=== PATIENT | female | born 1970 | race Caucasian/White ===

== ENCOUNTER 2024-01-19 08:12 | Outpatient (OUT) | payer OTHER, SELFPAY ==
[2024-01-19 10:58] LABS: Chol HDL Ratio 2.8; Cholesterol 155 mg/dL (<=200); Glucose 91 mg/dL (74-106); HDL Cholesterol 55 mg/dL (40-60); LDL Cholesterol Calculated 91.8 mg/dL; Triglycerides 41 mg/dL (<=150); VLDL CHOLESTEROL 8.2 mg/dL
== END 2024-01-19 08:13 | disposition home or self-care (01) ==
LOC: LAB 08:19
PROVIDERS: PCP Internal Medicine; Visit Provider Internal Medicine
DX: E78.2 Mixed hyperlipidemia (principal); Z13.1 Encounter for screening for diabetes mellitus
CPT/HCPCS: 36415; 80061; 82947

== ENCOUNTER 2024-12-20 08:37 | Outpatient (OUT) | payer OTHER, SELFPAY ==
--- OUTSIDE RECORDS SUMMARY | 2024-12-20 08:42 | XMS_ITS | CCD ---
Author Organization [facility] Care Team Providers Care Ui Developer Name Role Phone Linda Broussard Primary Care Physician Linda Biggs Unavailable Unavailable BRITTA CAVAZOS Primary Care Physician [phone] Britta Cavazos MD Primary Care Provider [phone] BRITTA CAVAZOS Referring Unavailable BRITTA CAVAZOS Primary Care Unavailable BRITTA CAVAZOS Referring Unavailable BRITTA CAVAZOS Primary Care Unavailable MACY, DR CALLEJAS Attending Unavailable MACY, DR CALLEJAS Consulting Unavailable MACY, DR CALLEJAS Primary Care Unavailable MACY, DR CALLEJAS Admitting Unavailable Linda Broussard Primary Care Physician NEL Benedict Admitting Unavailable NEL OLIVEIRA Attending Unavailable BRITTA CAVAZOS Primary Care Unavailable NEL OLIVEIRA Admitting Unavailable NEL OLIVEIRA Attending Unavailable BRITTA CAVAZOS Primary Care Unavailable Allergies Allergy Classification Reported Allergen(s) Allergy Type Date of Onset Reaction(s) Facility (1 source) Adhesive bandage Drug allergy Eruption (morphologic abnormality) [facility] (1 source) Pollen Drug allergy Allergic rhinitis due to pollen (disorder) [facility] Medications Current Medications Medication Drug Class(es) Dates Sig (Normalized) Sig (Original) acetaminophen 500 mg oral tablet (1 source) Start: 10-15-2020 take 2 tablets by mouth every four hours as needed for pain acetaminophen 500 mg Tab 1,000 mg = 2 tab(s), Oral, q4hr, PRN for pain Start Date: 10/15/20 Status: Ordered FLUoxetine 40 mg oral capsule (5 sources) Serotonin Reuptake Inhibitor Start: 08-17-2019 take 1 capsule by mouth once daily FLUoxetine 40 mg Cap 40 mg = 1 cap(s), Oral, Daily, Refills(s) 0, Anxiety Start Date: 10/08/20 Status: Ordered fluticasone propionate 0.05 mg/actuat metered dose nasal spray (1 source) Corticosteroid Start: 10-08-2020 Flonase 0.05 mg/inh nasal spray 2 spray(s), Nasal, Daily Allergy symptoms, Refill(s) 0, Allergy symptoms Start Date: 10/08/20 Status: Ordered Xyzal (1 source) Histamine-1 Receptor Antagonist Start: 02-15-2010 Xyzal 5 mg, Oral, qPM Allergy symptoms, Refill(s) 0, Allergy symptoms Start Date: 02/15/10 Status: Ordered lisinopril 10 mg oral tablet (3 sources) Angiotensin Converting Enzyme Inhibitor Start: 10-08-2020 End: 01-15-2023 take 1 tablet by mouth once daily lisinopril 10 mg Tab 10 mg = 1 tab(s), Oral, Daily, Refills(s) 0, High blood pressure Start Date: 10/08/20 Status: Ordered SUMAtriptan 100 mg oral tablet (3 sources) Serotonin-1b and Serotonin-1d Receptor Agonist Start: 10-08-2020 take 1 tablet by mouth once daily as needed for headache SUMAtriptan 100 mg Tab 100 mg = 1 tab(s), Oral, Daily, PRN as needed for migraine headache, Refills(s) 0, Migraine headache Start Date: 10/08/20 Status: Ordered Completed/Discontinued Medications Medication Drug Class(es) Dates Sig (Normalized) Sig (Original) ibuprofen 200 mg oral tablet (2 sources) Nonsteroidal Anti-inflammatory Drug take 2 tablets by mouth every six hours as needed ibuprofen 200 mg tablet take 2 tablets (400 mg) by oral route every 6 hours as needed with food Problems Active Problems Problem Classification Problem Date Documented Date Episodic/Chronic Anxiety disorders (1 source) Anxiety 10-08-2020 Chronic Benign neoplasm of uterus (1 source) Uterine leiomyoma 10-08-2020 Episodic Essential hypertension (5 sources) Essential (primary) hypertension; Translations: [Hypertensive disorder] Onset: 6 10-08-2020 Chronic Headache; including migraine (5 sources) Migraine with aura, not intractable, without status migrainosus; Translations: [Transformed migraine] Onset: 6 10-08-2020 Chronic Nonmalignant breast conditions (1 source) Microcalcifications of the breast 09-15-2020 Episodic Other connective tissue disease (3 sources) Pain in right arm Onset: 2 Episodic Other connective tissue disease (3 sources) Pain in left arm Onset: 2 Episodic Other female genital disorders (1 source) Enlarged uterus 10-08-2020 Episodic Other nervous system disorders (2 sources) Carpal tunnel syndrome, left upper limb; Translations: [Carpal tunnel syndrome, left upper limb] Onset: 3 Chronic Other nervous system disorders (3 sources) Other disturbances of skin sensation Onset: 2 Episodic Other non-traumatic joint disorders (1 source) Pain of right wrist; Translations: [Pain in right wrist] Episodic Other non-traumatic joint disorders (3 sources) Pain in right wrist; Translations: [Pain in right wrist] Onset: 3 Episodic Other upper respiratory disease (2 sources) Allergic rhinitis due to pollen Chronic Residual codes; unclassified (1 source) Family history of cancer of colon 09-15-2020 Episodic Residual codes; unclassified (1 source) Other specified postprocedural states; Translations: [Other specified postprocedural states] Onset: 3 Episodic Past or Other Problems Problem Classification Problem Date Documented Da te Episodic/Chronic Viral infection (2 sources) COVID-19 Results Test Name Value Interpretation Reference Range Facil ity GLUCOSE BLOODon 12-23-2022 Glucose [Mass/Vol] 99 mg/dL Normal 74-106 [facility] Comment on above: Performed By: #### G ARIA #### [facility] [address] [address] [address] Amanda Joseph XR WRIST RIGHT (MIN 3 VIEWS) on 12-07-2022 XR WRIST RIGHT (MIN 3 VIEWS) EXAMINATION: XRAY VIEWS OF THE RIGHT WRIST 12/07/2022 8:47 am COMPARISON: None. HISTORY: ORDERING SYSTEM PROVIDED HISTORY: Right wrist pain FINDINGS: Carpal bones and alignment are maintained. Distal radius and ulna are intact. No acute fracture or dislocation. IMPRESSION: Normal wrist radiographs Interpreted by: Hang Stone DO Signed by: Hang Stone DO 12/07/22 Final result Normal [facility] Normal wrist radiographs [facility] RIS CONSOLID[facility] EXAMINATION: XRAY VIEWS OF THE RIGHT WRIST 12/07/2022 8:47 am COMPARISON: None. HISTORY: ORDERING SYSTEM PROVIDED HISTORY: Right wrist pain FINDINGS: Carpal bones and alignment are maintained. Distal radius and ulna are intact. No acute fracture or dislocation. [facility] Hang Stone DO - 12/07/2022 EXAMINATION: XRAY VIEWS OF THE RIGHT WRIST 12/07/2022 8:47 am COMPARISON: None. HISTORY: ORDERING SYSTEM PROVIDED HISTORY: Right wrist pain FINDINGS: Carpal bones and alignment are maintained. Distal radius and ulna are intact. No acute fracture or dislocation. IMPRESSION: Normal wrist radiographs [employer] Phone: Radiology Study observation (narrative) [employer] Phone: XR WRIST RIGHT (MIN 3 VIEWS) Ordered By: Hang Stone on 12-07-2022 [facility] [employer] Phone: Coding Summary.on 03-15-2022 Coding Summary. [id number]+PGhlYWQ+FM4EQKQ [id number] ERJOXSNJCO3RGC7ymQX1T ZggL2DxbkAf DzowbBSaHO35TJk5XAF4x DgpMGienJ1wlNHaQ1b4Au NwSB60zU84GRgbUMTrHlF 3LjZpbjsgbWFy S5srMzQohCSbWhy+PHRhY mxlIHdpZHRoPScxMDAlJy YgvSvgII6fHp1qAGHnJMV vbGxhcHNlOiBj o1usOZNvDTbiKN7wnKvpK 3TwyHX9QZYib9o3Gk95kS I+BCDlEUI2vJrdDZrkr35 4XpEpg1zyEUZ2 fAZyLSkdFCN6B86jb0V5H IJbBCUhBVJ8mYA6zL0ugG egjyhtP4PwaRFdSzL6QNC 5lXIcmV1opBcu qrsxaA0iOrf+Y63XRG5FF TDAZH5QQku6Z9IlFindbQ I+QP89FRXqPY25rFFstYA zu8ifsZr9CnSd TMNvOLQ3aBflTPzpn4EiT JFsN47gkJUac9B0SDTqcJ uqhWWqPdColBU6uF4wGLd pqhftl4xotvai Sumxx2pzvi98uI86Q66dJ VmhYTCbKJK5QRJyKRSvjA lljl7qkK7cPv9+TWgms6o hq7oguYp5AyVv TWPqtuVdrKbpAXX6b8IwH i76R7YszCrvc7YvFbt8hw 76kZQzx6O1lLQ1LDdoPXO pvV0cZInzJlB8 GNUbKuBndB65qMUnZApzG i6loVuftJmzWP5wOKTykb ajDQLnpC7cZDXvzERsrIv dBA9eBQAirjmp g465NzZcCYQ6KRFhqHByD 9HlgU4dUiIbTZSwZTBuL8 XbtFSrKQahB385LJuoPqP 1EZXkheWhW5Xk DMTonNisAtD6p6J1Qq5Wk 4IbhjmkZJO8BKxlGAR8Im ElFwOjXlS3B0WgUzu1OUV woBtkSL4zU8Tc ZBJkaiqbdzuqcJX1QVAmI LKgeD48uFOjXJinPz7cr1 G0c694FQImCQIfuO82Ux8 udDogMTBwdCBU nA5ytryhk9paxfqxRcSvZ PXdCIl9WNa9NLDsvAyrFy HmXHT3PtF6MFZ2pUWtjZ0 fuQxiexatyD8t Oyc+H82alW5gJXM6JSN5v picZDLxzqGwJH26ZO66O9 RyPjwvdGFibGU+PGRpdiB onAqnKT2aGrLu d2jtv0JcSAqvP5BkFUOjA AnbUxw5BCXmCWN3wCM3mG 2bFYAjXRexh3T3fDH1D0B usoNnlm5dm3ga NYDrBZlaQ26ovHFgi5N8V GEsrES1KJPgnXwaPcLeaV 93Oyc+ALJxpRcee9NtSjm sg6mgx7tvcZn5 FrZkKRQmuwIeuHroWEP7r 9UmXw99N90cVPvjCTWnKG GxLTIjWPCdrAoyum2zyM3 wIi8+PGNvbCB3 dMC3uE2dPATmBbD3SOluR 021YnRigWWlQvjyx6bpw8 eooWh1RzHoHNZwemIejFk gKXZ5t3DtSq71 Y38gAAnfNUXwENAcHDBkC DSbsFwiel4ojB6wCt2+PC 8zj3geke22qO27wZK+PHR sVRO3gDvoCRut QLIbuF1hGHakCgL0ZRGlQ pRfcW72hAQlPGlmDg3fkW akxAucCZ9tNTCfauixz95 9TuGsb9ooPRAw nEVrVQazIQV4C84ji7E5J WJgGVJqAAV8tQJ9fJ6utC lnbjogbGVmdDsgdmVydGl uGEtjHJvuC636 IHRvcDsnPlBhdGllbnQgT hMlHEe1X0WtEum6IGXlfJ geKD0qcPFkXGilPo8rkOs hiZjoFW2pSRKe ihvoe119EkVog6rvCHFqo ONqAVjqAFK6K75bq8F8BS EfNFNvWAR9cZF5qP9ttNk nbjogbGVmdDsg ebIazKibFZprKOhmG937N HRvcDsnPkJpcnRoIERhdG O4CO05QI22hAEbg7F2iJB 2N5BfKFKjgheg uqhxlVC6IHIyKLAerO48M a4hhAxlRc2nTODwXCP3SK VimCQbQ7HfqJ6jJtFjMOB jNODlY3IoaCDp QYkgU529UTohCrM0ESEpp vKcR3EvBXAtoCdzWmO9o5 P8Ny8ZK3W0YZ60KT32iOV fc7K0iZY8I1Op IRWgsfimzdrkyRE0MURdI TEyeJ96Ly6ngLjdDl6bBF ZyHIE6APGwgYIcK2QhaA7 yOiAjMDAwMDAw K6BmyWRtEYiaH264TJwtF sT7MPHvpvQeF9UaMWUudU klKhF6q3J8Yr7MEMo0YQ0 6WF67xEVro1Q6 jPX2D1ImEPHcfhbzvfawo US8CMSiKGZhqI02Hr5dcG zfMg9yFRHxVNN9NGNjsCI gT1PcjY4hWhDf DSRuAFFkZ3XssFKrXHanO 949FXvcHuL8KQEldgJbO2 EmFMUqfPhbQuY7z2I5Tr9 UCFFhCF90CMT8 zZH8CY81FQ51Q9AiFdqac GFibGU+PHRhYmxlIHdpZH RoPScxMDAlJyBzdHlsZT0 kAc7nZRLuAWAv bPeinXBcPaXir9ewFZAwC MmpQL2tfRvyC9RxiLF7LI Jgm5r9Kn57V16jQ3VtwCZ +YPFflQV3wVW1 rJ1zCjGyFlH8AYitF047P wPwpNKzCvpnq9uol3sbhZ x7ZiM0OMKndiIokIomXGS 3m9DiKi53G84y IHdpZHRoPSIxNSUiIHZhb Onbxw8otV4yAm0+PGNvbC J3fYE2kU1dVrJlUrV6MSr xY993ApXqfOLc Pvjgl8pue7arsIt9GjWiY JSnuyNcxUpuDWP3d9NaTt 47I3MxmChxr0AzEgq5vc0 9pDCqa9W1aGF9 J0JqZJJcpypxgVRhtBmgC V4fOSCixbkzYADjjI9lCW AxZ1i9KhOcArV2IUgnJ0O tjlJ6CXNpxSFv RZfcJRZ8T06la9E5ZGMmO KHaVUU7aLW5gA0geBxeqb ogbGVmdDsgdmVydGljYWw cRBgcI790AJPd dIznVIKmwF0tCAEizLXzg YefPF3bGIGegqaiRuMTJ6 VSTUFOLCBDSEVSWUwgTTw vdGQ+PHRkIHN0 uOxxDGxfHBWedH2uWNBeV 1o0RmGiTmS0CBeiQ1IxDJ UpdyfpXv34oH8xQnYgJsO 4WDjnR8YdxcR6 NPNqfCGhKJuaKWT9D77zs 1E5PTHjIKLrUTG8aXN7jS 1hbGlnbjogbGVmdDsgdmV ydGljYWwtYWxp F086BWQcqPnaIhR0UsBlC pT8VwM8S4EmDbb5JGYnoC geYG0bzNDmNTopBw6dvZf mdJkgHJ1rBVVt pzfySRWohT1oDSAmvOGxn BfmWR7aSDYuffqqq488Ey KxCYJ6LBTcxXCwC7CkwS2 yOiAjMDAwMDAw U6VemMFeCJutU637BPsoM kU5DPExycHdQ5RiHCYokL qjGdF1s0I3Mz05VNUUYDJ yczwvdGQ+PHRk EON3gXmyELjzWQCzpF0cL MNnX9x5FrJkCzD2JMclT9 OfOIRezhdkQs45xV0iFdC gGxY1NBwaF8Mj bjL6WBWgkPJwDIluYIO9T 73rw9M2IYLlTLSeLEI2iL R3dY1euLadsadfaJWtgNf gdmVydGljYWwt YFhqK812XPFfnJqcFxFlg WFsZTwvdGQ+ZCQyTZC1uE juQUoxSDJbrI6mUFFwF1p 3NxBySrM4YDsu Z7DwJTJsznziXe41rR8hQ xOuZhQ2TAvdL8AhoiB1HJ PugQQeCAhlISA7O53zh9C 9CITnYTFcDJF6 kXV5nA4wsQhnimamxOKux DsgdmVydGljYWwtYWxpZ2 43GFMhwPwhPr39bBGgbCi drbP5T7QcYobd dHI+FW52AREeFS49aDAli WMjx5uudPu6EqSkJNQkEN N4mSybSArnv6JvTLHmJ16 fxRFda4P3DTFs fDpmpGWwFpPviWP1yG1vF Zbkoccuc0rltuhvSvvrv7 xsko32dY35R30hVMqnZLL oPSIzMCUiIHZh rIflxl2fuO5jHg8+PGNvb WA0kHM3sJ1sXaMcVbM3YT hnC998NvRghGGeYdfex5l xs0okmGc6KwBd KDFtmoMznOuoWQM3t3VwA l77P66zIFazBGEiJUHvCY VoJLUxjAwnsn8uhR5hYq2 +CO1se5ffrs16 iG09rWF+IUQlSLD7gXqwN JglTRUgkK4gQYocRqG0NL LyMuVhnH22xXQoKGylZm6 jjZuwoUazKO2j AFEugrunq306DcKuq4wjU VAhdFByPXslXOP5Z63ic6 N1ARBcIQMgVJV5pEE7xR4 hbGlnbjogbGVm dDsgdmVydGljYWwtYWxpZ 238POPwnIwePdWjeDKjV2 zfvsWQJX9cVhxedTT+PHR xRIP6kTljQUbh RBCgpN3wTRYrM0y4MnKgM yY6CXgqJ9JgilI1YYGogL GnDPAbtZCYcP9jbkscf1c vcjogIzAwMDAw EKz4AOx8YWPqbHqiYqQqB BW3RnJ4OUD9mKCepD5geA klmuxuvY5xJke+RklOOjw vdGQ+PHRkIHN0 xRsgFImwOIAjsP2eWOYhX 0u4RxJbToZ9SUcuE0Gwev E9VOUkfOTlUFIxrAWDrQ8 guezdy5cdcrhi VmUoISPqOFt8EGg7ZEXzt FouQeSdECU9ToZ3FXI2zY QugN8ejArigsqorI5fGbt +TVJOOjwvdGQ+ ZNDtWJK6cYjnAUtgCIVfh J6aFUIxT5i0PfWfMyZ6MI odJ7BoqlJ1GCIexRHfKNQ ixRSUwC3wsdyk e9rkajhkNpSuZIAuYPv3J Bx5OABniPuxZwWhCCI4Fz S7JDF3iNHgqJ5ndJrwryn wsZ9fOgw+UGF5 RRD9GN06DF62W0LaKsavl GFibGU+PHRhYmxlIHdpZH RoPScxMDAlJyBzdHlsZT0 sUy0sBCXbTBVa bGxh (more content not included)... Normal [facility] MA Mamm Screen w/CAD if perf and 3D Bilon 03-10-2022 MA Mamm Screen w/CAD if perf and 3D Anderson Exam Date/Time: 03/08/2022 16:47 EDT Reason for Exam: SCREENING Report IMPRESSION: BIRADS 1 NEGATIVE, NORMAL INTERVAL FOLLOW-UP Follow-up: 12 MONTH RECALL Dense Breast: No EXAM: MA Mamm Screen w/CAD if perf and 3D Anderson DATE: 03/08/2022 CLINICAL HISTORY: SCREENING. COMPARISONS: 08/24/2020, 03/29/2019, and 03/14/2018. TECHNIQUE: Routine full-field digital mammograms and 3D breast tomosynthesis of both breasts were obtained. FINDINGS: Scattered fibroglandular densities are present with stable asymmetry and a biopsy marking clip within the central left breast. There are no developing masses, suspicious microcalcifications, or areas of architectural distortion identified on the current study. No significant changes are identified from the prior studies, given differences in technique and positioning. CAD analysis was performed and used in the interpretation. Board Certified Radiologists. Accredited by the ACR and FDA. MAMMOGRAPHY IS VERY IMPORTANT TO YOUR HEALTH. THE CURRENT [employer] GUIDELINES RECOMMENDS ANNUAL MAMMOGRAPHY BEGINNING AT AGE 40. THIS FACILITY UTILIZES A REMINDER SYSTEM TO ENSURE ALL PATIENTS RECEIVE REMINDER NOTIFICATIONS AT THE APPROPRIATE TIME BASED ON THE RECOMMENDATIONS OF THIS EXAM. Report \X09\ FINAL REPORT Dictated: 03/10/2022 11:09 am Manish Hayes MD Signed (Electronic Signature): 03/10/2022 11:09 am Signed by: Manish Hayes MD Transcribed by: MAIN Technologist: SANTIAGO Assessment: BI-RADS Category 1-Negative Recommendation: Normal interval follow-up Normal [facility] Consent for Treatmenton Consent for Treatment [id number]:127 Normal [facility] Physician Orderon 03-01-2022 Physician Order [id number]:127 [facility] Vital Signs Date Time Vital Sign Value Performing Clinician Emely orlando 01-15-2023 10:39-0400 Body height 165.1 cm [facility] 01-15-2023 10:39-0400 Body mass index (BMI) [Ratio] 26.29 kg/m2 [facility] 01-15-2023 10:39-0400 Body surface area Derived from formula 1.81 m2 [facility] 01-15-2023 10:39-0400 Body weight 71.67 kg [facility] [employer] [employer] 01-15-2023 10:39-0400 Diastolic blood pressure 80 mm[Hg] [facility] 01-15-2023 10:39-0400 Heart rate 72 /min [facility] 01-15-2023 10:39-0400 Systolic blood pressure 124 mm[Hg] [facility] 02-21-2022 09:20-0400 Body height 167.64 cm [facility] 02-21-2022 09:20-0400 Body mass index (BMI) [Ratio] 31.52 kg/m2 [facility] 02-21-2022 09:20-0400 Body surface area Derived from formula 2.03 m2 [facility] 02-21-2022 09:20-0400 Body weight 88.59 kg [facility] 02-21-2022 09:20-0400 Diastolic blood pressure 70 mm[Hg] [facility] 02-21-2022 09:20-0400 Heart rate 68 /min [facility] 02-21-2022 09:20-0400 Systolic blood pressure 110 mm[Hg] [facility] Encounters Encounter Date Encounter Type Care Provider Facility Start: 03-09-2023 End: 03-09-2023 [facility] Start: 02-23-2023 End: 02-23-2023 [facility] Start: 01-15-2023 [facility] Linda Cisse rne Other [facility] Office Start: 12-28-2022 Encounter for genera l adult medical examination without abnormal findings DR BRITTA CAVAZOS [facility] Start: 12-23-2022 End: 12-24-[address] BRITTA CAVAZOS Facility:[facility] Start: 12-23-2022 End: 12-24-2022 Encounter for general adult medical examination without abnormal findings DR BRITTA CAVAZOS Facility:[facility] Start: 12-07-2022 End: 12-10-2022 ambulatory BRITTA CAVAZOS [facility] Start: 12-07-2022 End: 12-09-2022 Subsequent hospital visit by physician Hallie Xr Room 4 [facility] Radiology Comment on above: Right wrist pain Start: 03-08-2022 End: 03-08-2022 Patient encounter procedure Curt Gaines [facility] Start: 02-21-2022 Split Srvc Linda Cisse rne Other [facility] Office Procedures Date Procedure Procedure Detail Performing Clinician Start: 01-15-2023 Nerve conduction anthony dies 9-10 studies Linda Broussard Start: 12-07-2022 Radex wrist complete minimum 3 views Britta Cavazos MD Work Phone: Start: 02-21-2022 Nerve conduction anthony dies 9-10 studies Linda Broussard Start: 10-15-2020 Hysterectomy Curt hope Start: 10-11-2020 Colonoscopy [facility] 4 Start: 09-03-2019 Colonoscopy Curt hope Comment on above: sigmoid diverticulos is Cholecystectomy Curt Gaines Plan of Treatment Date Care Activity Detail Author Start: 10-11-2030 [facility] malign [facility] Start: 11-26-2026 Lipid panel Lipids [facility] Start: 03-08-2024 Screening for malign ant neoplasm of breast Breast cancer screen [facility] Start: 12-03-2023 End: 12-03-2023 Patient encounter procedure 12/03/2023 Office Visit Internal Medicine Britta Cavazos MD [address] [place] [address], [place] [address] Britta Cavazos MD Start: 11-29-2023 COVID-19 Vaccine (#1) COVID-19 Vacci ne (#1) [facility] [employer] Comment on above: Postponed from 08/14 (Patient Refused) Start: 11-29-2023 Depression Screen Depression Screen [facility] Start: 11-29-2023 DTaP/Tdap/Td vaccine (1 - Tdap) DTaP/Tdap/Td vaccine (1 - Tdap) [facility] Comment on above: Postponed from 02/12 (Patient Refused) Start: 11-29-2023 Influenza vaccination Flu vacc ine (Season Ended) [facility] Comment on above: Postponed from 04/03 (Patient Refused) Start: 02-13-2016 Screening for malign ant neoplasm of colon [facility] [employer] Immunizations Immunization Date Immunization Notes Care Provider Fa cility 04-26-2022 zoster vaccine recombinant Mth 4 [facility] 02-01-2022 zoster vaccine recombinant Mth 4 [facility] Work Phone: 06-28-2009 novel influenza-H1N1 -09, preservative-free, injectable Mth 4 [facility] [employer] Payers Date Payer Category Payer Unknown [id number] 2.16.8 [id number] 1970 Unknown [id number] 2.16.8 [id number] 1971 Unknown [id number] 2.16.84 [id number] 1971 Unknown [id number] 2.16.8 [id number] 1971 Unknown [id number] 2.16.8 [id number] 1959 Private Health Insurance [id number] Social History Date Type Detail Facility [facility] [employer] Start: 09-08-2020 Tobacco smoking status Never s moked tobacco (finding) [facility] Sex Assigned At Female [facility] Start: 11-28-2022 Alcohol intake 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) [employer] Phone: Start: 11-28-2022 History SDOH Financial 5 [employer] Phone: Start: 11-28-2022 History SDOH Food Worry 1 [employer] Phone: Start: 10-08-2019 End: 11-28-2022 History SDOH Transport Med 2 [employer] Phone: Start: 1970 Sex Assigned At Not on file [employer] Phone: Evaluation + Plan note Note Date & Type Note Facility Evaluation + Plan note No data available for this section [facility] Evaluation note Note Date & Type Note Facility Evaluation note Diagnosis Right wrist pain Pain in joint, forearm documented in this encounter [employer] Phone: Hospital Discharge instructions Note Date & Type Note Facility Hospital Discharge instructions No data available for this section [facility] Progress note Note Date & Type Note Facility Progress note No data available for this section [facility] Summary Purpose Family History No Family History Records FoundNo Family History Records FoundNo Family History Records FoundNo Family History Records Found Advance Directives No Advanced Directives Records FoundNo Advanced Directives Records FoundNo Advanced Directives Records FoundNo Advanced Directives Records Found Additional Source Comments Care Team (unrecognized sect ion and content) Ui Developer Relationship Specialty Start Date End Date Britta Cavazos MD [address] [place] [address], [place] [address] PCP - General Internal Medicine 10/09/14 Ui Developer Relationship Specialty Start Date End Date Britta Cavazos MD [address] [place] [address], [place] [address] PCP - General Internal Medicine 10/09/14 INFORMATION SOURCE (unrecogn ized section and content) DATE CREATED AUTHOR 03/22/2022 [facility] DATE CREATED AUTHOR AUTHOR'S ORGANIZ ATION 12/10/2022 [facility] DATE CREATED AUTHOR AUTHOR'S ORGANIZ ATION 12/29/2022 [facility] DATE CREATED AUTHOR AUTHOR'S ORGANIZ ATION 03/16/2023 Tammie Erazo Ian patriciatal FOR RECORDS PERTAINING TO PATIENTS WHO ARE OR HAVE BEEN ENROLLED IN A CHEMICAL DEPENDENCY/SUBSTANCEABUSE PROGRAM, SOME INFORMATION MAY BE OMITTED. This clinical summary was aggregated from multiple sources. Caution should be exercised in using it in the provision of clinical care. This summary normalizes information from multiple sources, and as a consequence, information in this document may materially change the coding, format and clinical context of patient data. In addition, data may be omitted in some cases. CLINICAL DECISIONS SHOULD BE BASED ON THE PRIMARY CLINICAL RECORDS. [employer] [facility] provides no warranty or guarantee of the accuracy or completeness of information in this document.
[2024-12-20 09:27] LABS: Glucose 95 mg/dL (74-106)
== END 2024-12-20 08:38 | disposition home or self-care (01) ==
LOC: LAB 08:39
PROVIDERS: PCP Internal Medicine; Visit Provider Internal Medicine
DX: Z13.1 Encounter for screening for diabetes mellitus (principal)
CPT/HCPCS: 36415; 82947